=== PATIENT | female | born 1930 | race Caucasian/White ===

== ENCOUNTER → 2016-09-16 | Outpatient (CLI) | payer MEDICARE, BC ==
[2015-12-18 10:55] VITALS: BP 99/48
[~2016-09-16] MED LIST: ACET325T9 PO; ATOR20TA58 PO; AZEL205.2 NS; DIPH25CA58 PO; DRON400T PO; ESCITALOPRAM OX10 MG PO; FURO-68 PO; MAGN400T22 PO; METO-269 PO; POTA10TA12 PO; RIVA15TA PO; TRAM50TA PO
--- NOTE | 2016-09-16 15:08 | RAD ---
Indication back pain. AP oblique and lateral views of the lumbar spine were obtained as well as a coned view targeted to the lumbosacral junction. There is mild scoliosis. There is disc space narrowing at L2-3 with associated degenerative endplate changes. Disc space narrowing is also seen at L3-4, L4-5 and L5-S1. There is mild collapse of the superior endplate of L1 the chronicity of which is not certain. Some facet degenerative changes are noted in the lower lumbar spine. Moderately extensive vascular calcification is noted. IMPRESSION: Scoliosis. Lumbar spondylitic changes. Mild collapse involving the superior endplate of L1 the chronicity of which is not certain
== END ==
LOC: RAD 14:14
PROVIDERS: ATTEND Family Medicine
DX: M41.9 Scoliosis, unspecified (principal)
CPT/HCPCS: 72110

== ENCOUNTER → 2016-10-16 | Outpatient (CLI) | payer MEDICARE, BC ==
[2016-10-16] VITALS (7 sets, daily range): BP systolic 133–152; BP diastolic 65–83
[~2016-10-16] VITALS: Ht 162.6 cm; Wt 45.4 kg
[~2016-10-16] MED LIST changes: +CONTRAST GIVEN MC PRN; +DOCU100C28 PO; +HYDR-2758 PO; +IOHEXOL 300 MG/ML 50 ML VIAL. IART ONE; +IOHEXOL 300 MG/ML 50 ML VIAL. ONE; +LIDOCAINE 1% / SOD BICARB 8.4% 20 ML VIAL. IJ ONE; +MIDAZOLAM HCL/PF 2 MG/2 ML VIAL. IV ONE; +MIDAZOLAM HCL/PF 2 MG/2 ML VIAL. ONE; +MULT-658 PO; +OMEP40CA5 PO; +diphenhydrAMINE 50 MG/ML VIAL IVP ONE; +diphenhydrAMINE 50 MG/ML VIAL ONE; +fentaNYL PF VIAL 100 MCG/2 ML VIAL IV ONE; +fentaNYL PF VIAL 100 MCG/2 ML VIAL ONE
[2016-10-16 09:08] LABS: BASO % 0 % (0-3); EOS % 1 % (0-3); HEMATOCRIT 42.5 % (36.0-47.0); HEMOGLOBIN 13.7 g/dL (12.0-15.5); LYMPH # 0.6 x10^3/uL (1.0-4.8); LYMPH % 8 % (24-48); MEAN CORPUSCULAR HEMOGLOBIN 29 pg (25-35); MEAN CORPUSCULAR HGB CONC 32 g/dL (31-37); MEAN CORPUSCULAR VOLUME 89 fL (79-100); MONO % 8 % (0-9); NEUT % 82 % (31-73); PLATELET COUNT 264 x10^3/uL (140-400); RED BLOOD COUNT 4.77 x10^6/uL (3.50-5.40); RED CELL DISTRIBUTION WIDTH 17.5 % (11.5-14.5); WHITE BLOOD COUNT 6.9 x10^3/uL (4.0-11.0)
[2016-10-16 09:17] LABS: INR 0.9 (0.8-1.1); PROTHROMBIN TIME PATIENT 11.5 SEC (11.7-14.0)
--- NOTE | 2016-10-16 11:36 | RAD ---
Procedure: Fluoroscopic guided biopsy and kyphoplasty of L1 Clinical Indication: 86-year-old female with acute debilitating wedge compression fracture of L1, history of lung cancer Sedation: Conscious sedation was administered for 24 minutes. The patient was monitored by a qualified independent observer throughout the time of sedation. Please refer to the medical record for exact doses of medications utilized to achieve moderate sedation. Antibiotics: Antibiotic was administered intravenously within 1 hour of the procedure start time. Exposure: Kerma-Area Product: 3440.4 microGym2 Contrast: None Sterility: All elements of maximal sterile barrier technique including the use of a cap, mask, sterile gown, sterile gloves, large sterile sheet, appropriate hand hygiene, and 2% chlorhexidine for cutaneous antisepsis (or acceptable alternative antiseptic per current guidelines) were followed for this procedure. Consent: The procedure was explained in its entirety to the patient or the patients designated outreach representative by a member of the treatment team, including a discussion of the risks, benefits and commonly accepted alternatives to the procedure, as well as the expected consequences of no therapy whatsoever. Discussion of the risks included, but was not limited to, those that are most frequent and those that are rare but possibly severe or life-threatening, as well as the possibility of unforeseen complications. Technique and Findings: Following informed consent, the patient was prepped and draped in usual sterile fashion. 1% lidocaine was used to achieve local anesthesia over the left paraspinal soft tissues. A small dermatotomy was made. Under fluoroscopic guidance, a 10-gauge needle guide was advanced into the anterior aspect of the L1 vertebral body and a balloon was used to create a cavity within the bone. Polymethylmethacrylate was then instilled, but failed to cross the midline in any substantial manner. Consequently, one percent lidocaine was used to achieve local anesthesia over the right paraspinal soft tissues and a second 11-gauge needle was advanced in a right transpedicular fashion to the posterior aspect of the L1 vertebral body. A 12-gauge coaxial core bone biopsy specimen was then obtained and preserved in formalin. Polymethylmethacrylate was then instilled into the right hemivertebral body. Both needles were then removed and hemostasis was achieved with manual compression. Complications: No immediate Impression: 1. Fluoroscopic guided biopsy and kyphoplasty of L1 as described.
--- NOTE | 2016-10-19 17:15 | PATHOLOGY ---
PATHOLOGY REPORT * * * * * * * * FINAL DIAGNOSIS: Segments of bone and blood clot, L1 vertebral body biopsy: - Marrow edema with focal acute inflammation, hemosiderin laden macrophages, and reactive bone formation. COMMENT: Sections of the L1 vertebral body biopsy reveal segments of bone and blood clot. The segments of bone show marrow edema with focal acute inflammation and hemosiderin laden macrophages. There is also focal reactive bone formation. There are fragments of hematopoietic marrow present within the blood clot. The findings are consistent with fracture site. There is no evidence of metastatic carcinoma. (JPM:mgr; 10/19/2016) REPORT ELECTRONICALLY SIGNED BY: Edson Weber M.D. DATE/TIME: 10/19/2016 17:14 * * * * * * * * GROSS PATHOLOGY: Received in formalin labeled "Devin Rossi, L1 biopsy," is a single needle core of gil bone, measuring 1.5 cm in length and 0.2 cm in diameter. There are multiple fragments of blood clot, forming an aggregate measurement of 1.5 x 0.9 x 0.3 cm. The specimen is submitted entirely in cassette A1, following decalcification. (JPM; 10/16/16) INITIAL CPT CODE(S): A; 73371, 33203 Professional services performed [place] [address] Technical services performed by [facility] at [address] [place] [address], [facility] [address], [place] [address]. SPECIMEN(S) RECEIVED: A.L1 biopsy CLINICAL HISTORY: L1 compression fracture PATIENT: DEVIN ROSSI /AGE: 1101/12/1930 (Age: 86) PATIENT #: [id number] ALT CASE #: SPECIMEN COLLECTION DATE: 10/16/2016 SPECIMEN RECEIVED DATE: 10/16/2016 [facility] [place] [address] - PHONE: [phone] * * * END OF REPORT * * *
== END | disposition home or self-care (01) ==
LOC: INTRAD 08:22
PROVIDERS: ATTEND Family Medicine
DX: S32.010A Wedge compression fracture of first lumbar vertebra, initial encounter for closed fracture (principal); X58.XXXA Exposure to other specified factors, initial encounter; Y93.89 Activity, other specified; Y92.89 Other specified places as the place of occurrence of the external cause; Y99.9 Unspecified external cause status; Z88.1 Allergy status to other antibiotic agents; Z88.3 Allergy status to other anti-infective agents; Z88.0 Allergy status to penicillin; Z88.8 Allergy status to other drugs, medicaments and biological substances
CPT/HCPCS: 22514; 36415; 85025; 85610; 99152; 99153; C1725; C1892; J1200; J1956; J2250; J3010; Q9967